=== PATIENT | female | born 2005 | race Caucasian/White ===

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

== ENCOUNTER 2025-02-19 15:10 | Emergency (ER) | payer OTHER, MEDICAID ==
[~2025-02-19] VITALS: Ht 165.1 cm; Wt 134.8 kg
[~2025-02-19 15:10] MED LIST changes: -IBUP-1022 PO; +IBUP600T42 PO
[2025-02-19 17:02] LABS: URINE PREG TEST NEGATIVE (NEGATIVE)
[2025-02-19 17:05] LABS: KETONE, URINE AUTO RFX NEGATIVE (NEGATIVE); MUCUS, URINE RFX MODERATE (NEGATIVE); NITRITE, URINE AUTO RFX NEGATIVE (NEGATIVE); RBC, URINE AUTO RFX 2 /HPF (0-3); SQUAM EPITHELIAL CELL UR AURFX 19 /HPF (0-6)
[2025-02-19 17:21] LABS: BASO # 0.0 10^3/uL (0.0-0.2); BASO % 0.3 % (0.0-1.0); EOS # 0.1 10^3/uL (0.0-0.5); EOS % 0.7 % (0.0-3.0); LYMPH # 1.1 10^3/uL (1.5-5.0); LYMPH % 14.7 % (24.0-44.0); MONO # 0.5 10^3/uL (0.0-0.8); MONO % 6.3 % (2.0-8.0); NEUTROPHILS # 5.8 10^3/uL (1.5-8.5); NEUTROPHILS % 77.7 % (36.0-66.0); PLATELET COUNT, AUTOMATED 236 10^3/uL (150-450)
[2025-02-19 17:52] LABS: LEUKOCYTE ESTERASE UR AUTO RFX TRACE (NEGATIVE); WBC, URINE AUTO RFX 13 /HPF (0-3)
[2025-02-19 18:04] LABS: ALT/SGPT 15 U/L (7.0-40); AST/SGOT 15 U/L (<34); CALCIUM LEVEL 8.5 MG/DL (8.5-10.1); CARBON DIOXIDE LEVEL 27 MMOL/L (20-31); CHLORIDE LEVEL 106 MMOL/L (98-107); CREATININE FOR GFR 0.58 MG/DL (0.55-1.30); GLOMERULAR FILTRATION RATE > 90.0 (>60); POTASSIUM SERUM 3.9 MMOL/L (3.5-5.1); SODIUM LEVEL 141 MMOL/L (136-145)
[2025-02-19] MEDS: ONDANSETRON 4MG ORAL DISINTEGRATING TAB PO ONE (20:26)
[2025-02-19] MEDS: LIDOCAINE VISCOUS 2% SOLN 15 ML UDC PO ONE (20:26)
[2025-02-19] MEDS: SUCRALFATE SUSP 1GM/10ML UD PO ONE (20:26)
[2025-02-19] MEDS: MAALOX 30 ML SUSP *UDC PO ONE (20:26)
[2025-02-19 21:01] LABS: HCG, SERUM QUALITATIVE NEGATIVE (NEGATIVE)
[2025-02-19] MEDS ORDERED: ONDA-282 PO (21:34)
[2025-02-19] MEDS ORDERED: SUCR1SS PO (21:34)
[2025-02-19] MEDS ORDERED: PANT40TA29 PO (21:34)
[2025-02-19 21:42] VITALS: BP 119/83; TEMP 97.8; O2SAT 99
== END 2025-02-19 21:45 | disposition home or self-care (01) ==
LOC: M ED 15:10 → EDBD 15:10 → M ED 21:45
DX: R10.9 Unspecified abdominal pain (principal); F90.9 Attention-deficit hyperactivity disorder, unspecified type; F32.A Depression, unspecified; Z79.899 Other long term (current) drug therapy

== ENCOUNTER 2025-02-26 12:35 | Emergency (ER) | payer OTHER, MEDICAID ==
[~2025-02-26] VITALS: Ht 165.1 cm; Wt 134.4 kg
[~2025-02-26 12:35] MED LIST changes: +ONDA-282 PO; +PANT40TA29 PO; +SUCR1SS PO
[2025-02-26 12:40] VITALS: BP 133/79; TEMP 97.7; O2SAT 99
[2025-02-26] MEDS ORDERED: PENI500T PO (14:36)
[2025-02-26] MEDS ORDERED: IBUP600T42 PO (14:36)
== END 2025-02-26 14:40 | disposition home or self-care (01) ==
LOC: M ED 12:35
DX: K04.7 Periapical abscess without sinus (principal); Z79.1 Long term (current) use of non-steroidal anti-inflammatories (NSAID); Z79.2 Long term (current) use of antibiotics; Z79.899 Other long term (current) drug therapy